=== PATIENT | female | born 1980 | race Hispanic/Latino ===

== ENCOUNTER 2016-08-05 16:18 | Emergency (ER) | payer OTHER ==
[~2016-08-05] VITALS: Ht 154.9 cm; Wt 102.3 kg
[~2016-08-05 16:18] MED LIST: IBUP800T28 PO; LEVO500T16 PO; LEVO750T39 PO; NOMED; ONDA4TAB6 PO; ONDA8TAB7 PO
[2016-08-05 16:39] VITALS: BP 116/72; PULSE 74; RESP 12; O2SAT 100
--- NOTE | 2016-08-05 17:10 | ED.REPORT ---
HPI-Chest Pain Under 40 Date of Service Aug 05, 2016 ED Provider: Benitez Diaz MD Pt is a 36 year old female with a hx of scoliosis and chronic back pain presenting to the ED complaining of middle chest pain and tightness onset at 1000 today while cleaning, lasting for an hour. Associated symptoms include dizziness, SOB, weakness, diaphoresis, constipation, pelvic pressure with urination, abdominal pain, nausea and vomiting. Denies diarrhea. She denies previous similar symptoms or family history of heart disease. She had a normal EKG in today showing sinus rhythm with a rate of 80. Nursing Notes Stated Complaint: CHEST PAIN,BACK PAIN Chief Complaint: Chest Pain Nursing Notes Reviewed: Yes Allergies: Coded Allergies: No Known Allergies (Verified , 07/07/06) Scheduled Famotidine (Pepcid) 40 Mg Tablet 40 MG PO BID Levofloxacin (Levofloxacin) 750 Mg Tablet 750 MG PO DAILY Levofloxacin (Levaquin) 500 Mg Tablet 500 MG PO DAILY Scheduled PRN Ibuprofen (Ibuprofen) 800 Mg Tablet 800 MG PO TID PRN PRN For Pain Ondansetron (Zofran) 4 Mg Tablet 4 MG PO Q4H PRN PRN For Nausea Ondansetron ODT (Zofran ODT) 8 Mg Tablet 8 MG PO Q4H PRN PRN For Nausea Miscellaneous Medications No Historical Medication (No Historical Medication) Ea General Time Seen by MD: 17:09 Chief Complaint Chest pain Hx Obtained From: Patient Arrived By: Walk-in Sudden in Onset?: Yes Onset Occurred: 5 - 8 hours ago Context of Onset: Light exertion Symptom Duration: Since onset Quality: Painful Radiation: : Abdomen: Back Severity: Current: No pain currently Severity: Maximum: Moderate Recent Healthcare: No recent hospitalization, Recent doctor visit Similar Sx Previous: No Past Medical History Past Medical History anemia hx kidney infection Chronic back pain scoliosis Family History Denies family hx of heart disease Smoking History Former Smoker Social History Drug Use: Denies drug use Other Social History: Occupation Works at the [employer] in [facility] Ambulatory Status Independent Review of Systems Respiratory: Reports: Shortness of breath Cardiovascular: Reports: Chest pain GI: Reports: Abdominal pain, Constipation, Nausea, Vomiting, Denies: Diarrhea Skin: Reports Diaphoresis Neurologic: Reports: Dizziness, Weakness Complete sys rev & neg: except as marked. Female: Reports: Pelvic pain Physical Exam Initial Vital Signs Vital Signs (First) Date Time Temp Pulse Resp B/P Pulse Ox O2 Delivery O2 Flow Rate FiO2 08/05/16 16:39 36.4 74 12 116/72 100 Room Air Initial VS: Reviewed Head / Eyes: Atraumatic, Normocephalic, PERRL ENT: Mucous membranes moist, Conjunctiva normal, No scleral icterus Neck: Supple, Non-tender, Full range of motion Skin: Warm, Dry, No cyanosis Neurologic: Alert, Oriented, Nonfocal Psychiatric: Mood/affect normal, Behavior normal, Normal thought content General/Constitutional: Awake, Alert, No acute distress, Well appearing Respiratory / Chest: Breath sounds NL, Breath sounds = bilat, No respiratory distress, No rales, No rhonchi, No wheezing, No chest tenderness Cardiovascular: Heart rate NL, Regular rhythm, Heart sounds NL, No gallop, No murmurs, No rubs, Peripheral circulation NL, Pulses = bilaterally, No gross BP differential Abdomen: BS normoactive Tenderness/Guarding/Rebound: Positive: Tender LLQ... (Mild) Interpretation & Diagnostics Lab Results Interpretation Result Diagram: 08/05/16 1725 08/05/16 1725 Test 08/05/16 17:02 08/05/16 17:25 08/05/16 19:14 08/05/16 19:45 Hold Urine Received (Received) White Blood Count 9.0th/mm3 (3.8-10.1) Red Blood Count 5.02mil/mm3 (3.90-5.20) Hemoglobin 10.8g/dL (12.0-15.6) Hematocrit 35.8% (35.0-46.0) Mean Corpuscular Volume 71.3fL (81-100) Mean Corpuscular Hemoglobin 21.5pg (27.0-35.0) Mean Corpuscular Hemoglobin Concent 30.2% (32.0-37.0) Red Cell Distribution Width 16.3% (12.3-15.4) Platelet Count 337bil/L (150-400) Neutrophils (%) (Auto) 58.5% (40-74) Lymphocytes (%) (Auto) 29.9% (14-46) Monocytes (%) (Auto) 7.1% (4-12) Eosinophils (%) (Auto) 4.0% (0-5) Basophils (%) (Auto) 0.3% (0-3) Sodium Level 138mEq/L (134-144) Potassium Level 3.8mEq/L (3.5-5.2) Chloride Level 101mEq/L (97-108) Carbon Dioxide Level 24mmol/L (18-29) Blood Urea Nitrogen 15mg/dL (6-20) Creatinine 0.59mg/dL (0.57-1.00) Estimat Glomerular Filtration Rate 167mL/min (>59) Glucose Level 98mg/dL (60-99) Calcium Level 9.1mg/dL (8.5-10.1) Magnesium Level 2.0mg/dL (1.6-2.6) Total Bilirubin 0.2mg/dL (0.0-1.2) Aspartate Amino Transf (AST/SGOT) 24U/L (0-50) Alanine Aminotransferase (ALT/SGPT) 18U/L (0-32) Alkaline Phosphatase 68U/L (25-150) Total Protein 7.3g/dL (6.4-8.4) Albumin 4.2g/dL (3.4-5.0) Troponin T < 0.010ug/L (0.0-0.011) Lipase 31U/L (13-60) Lab Results Interpretation: Urine negative ECG Interpretation Time: 18:29 Interpreted by: ED physician Normal ECG Interpretation: Normal rate (64), Normal sinus rhythm X-Ray Chest Interpretation Chest Xray Interpretation: IMPRESSION: No acute cardiopulmonary findings. Dictated by: Patsy Flores M.D. on 08/05/2016 at 18:07 View: Portable, 1 view Interpretation / Wet Read by: Interpret - Radiologist Re-Eval/Medical Decision Re-Evaluation/Progress #1: Time of Eval: 19:25 Patient Status: Condition improved Re-Evaluation/Progress Note: Discussed radiology results and performed physical exam. Re-Evaluation/Progress #2: Time of Eval: 21:25 Patient Status: Condition improved Re-Evaluation/Progress Note: Discussed plan for discharge. Pt understands and agrees. Counseled Regarding: Diagnosis, Lab results, Need for follow-up, When/why to return to ED Discharge & Departure Primary Impression: Chest pain Chest pain type: precordial chest pain Qualified Code: R07.2 - Precordial pain Disposition: Home Discharge Condition All VS Reviewed: Yes Condition: Improved Patient Instructions: Esophageal Spasm (ED) Additional Instructions: Emergency department evaluation today included Examination, Labs, EGD and Chest X-Ray. No Serious Cause for Chest Pain Is Identified. We considered heart disease, and pneumonia among other causes and near these are found to be present. Given the recent history of heartburn, we suggest Pepcid twice daily. Follow up with primary care soon. If having increasing chest pain or shortness of breath return to emergency department. Referrals: Amina Phillips MD (PCP) Scribe Attestation Portions of this note were transcribed by Anjali Montez. I, Dr. Diaz personally performed the history, physical exam and medical decision-making; I reviewed and confirmed the accuracy of the information in the transcribed note. Signed by : Tameka Nesbitt, 08/05/2016 and 2224. copies to: Amina Phillips MD, Donald L MD Aug 05, 2016 17:10 ANJALI MONTEZ Aug 05, 2016 18:06
[2016-08-05 17:43] LABS: BASOPHILS % (AUTO) 0.3 % (0-3); MONOCYTES % (AUTO) 7.1 % (4-12); Mean Corpuscular Hemoglobin 21.5 pg (27.0-35.0); Mean Corpuscular Volume 71.3 fL (81-100); NEUTROPHILS % (AUTO) 58.5 % (40-74); Platelet Count 337 bil/L (150-400)
[2016-08-05] MEDS ORDERED: Ondansetron 2 mg/mL 2 mL Inj ONE (17:54)
--- NOTE | 2016-08-05 18:11 | DRSVH ---
PROCEDURE: X-RAY CHEST ONE VIEW, PORTABLE ([id number]) INDICATIONS: chest pain TECHNIQUE: One view of the chest was acquired. COMPARISON: None. FINDINGS: Surgical changes and devices: None. Lungs and pleura: No pleural effusions or pneumothorax. Lungs are clear. Mediastinum: Mediastinal contours appear normal. Heart size is normal. Bones and chest wall: No suspicious bony lesions. Overlying soft tissues appear unremarkable. IMPRESSION: No acute cardiopulmonary findings. Dictated by: Patsy Flores M.D. on 08/05/2016 at 18:07 Approved by: Patsy Flores M.D. on 08/05/2016 at 18:09
[2016-08-05 18:16] LABS: TROPONIN T < 0.010 ug/L (0.0-0.011)
[2016-08-05] MEDS ORDERED: FAMO40TA72 PO (21:28)
[2016-08-05 21:36] VITALS: BP 118/68; PULSE 82; RESP 12; O2SAT 99
== END 2016-08-05 21:37 | disposition home or self-care (01) ==
LOC: SED 16:18
DX: R07.2 Precordial pain (principal); Z87.891 Personal history of nicotine dependence
CPT/HCPCS: 36415; 71010; 80053; 81025; 83690; 83735; 84484; 85025; 93005; 96374; 99285; J2405

== ENCOUNTER 2016-09-13 19:28 | Emergency (ER) | payer OTHER ==
[~2016-09-13 19:28] MED LIST changes: +FAMO40TA72 PO
[2016-09-13 19:43] VITALS: BP 130/92; PULSE 73; RESP 16; O2SAT 98
--- NOTE | 2016-09-13 19:49 | ED.REPORT ---
HPI-Dental/Mouth Prob Date of Service Sep 13, 2016 ED Provider: Sally Rubalcava History of Present Illness: left lower tooth cracked just prior to arrival while eating popcorn. sees a dentist in [facility]. 01/29 pain. primary care is in [facility]. [facility] Nursing Notes Stated Complaint: DENTAL PAIN Chief Complaint: General Complaint Allergies: Coded Allergies: No Known Allergies (Verified , 07/07/06) Scheduled Famotidine (Pepcid) 40 Mg Tablet 40 MG PO BID Levofloxacin (Levofloxacin) 750 Mg Tablet 750 MG PO DAILY Levofloxacin (Levaquin) 500 Mg Tablet 500 MG PO DAILY Scheduled PRN Ibuprofen (Ibuprofen) 800 Mg Tablet 800 MG PO TID PRN PRN For Pain Ondansetron (Zofran) 4 Mg Tablet 4 MG PO Q4H PRN PRN For Nausea Ondansetron ODT (Zofran ODT) 8 Mg Tablet 8 MG PO Q4H PRN PRN For Nausea Miscellaneous Medications No Historical Medication (No Historical Medication) Ea General Time Seen by MD: 19:48 Chief Complaint Tooth pain Hx Obtained From: Patient Onset Occurred: 1 - 4 hours ago Past Medical History Past Medical History anemia hx kidney infection Chronic back pain scoliosis Denies: Asthma, Diabetes mellitus Past Surgical History Reports: Tonsillectomy Reports: Tubal ligation Family History Denies family hx of heart disease Smoking History Former Smoker (stopped 4 months ago 09/13/2016) Social History Alcohol Use: "Social" Drug Use: Denies drug use Other Social History: Occupation Works at the [employer] in [facility] 09/13/2016 Ambulatory Status Independent Review of Systems Basic Review of Systems Eyes: Vision NL, No discharge Skin: No bruising, No rash, No itch Psychiatric: Normal thought content Physical Exam Initial Vital Signs Vital Signs (First) Date Time Temp Pulse Resp B/P Pulse Ox O2 Delivery O2 Flow Rate FiO2 09/13/16 19:43 36.4 73 16 130/92 98 Room Air Initial VS: Reviewed, Vital signs normal General/Constitutional: Well-developed, Well-nourished Head / Eyes: Atraumatic, Normocephalic, PERRL Respiratory: Breath sounds normal, Clear to auscultation, No respiratory distress Cardiovascular: Regular rate & rhythm, Heart sounds normal, Intact distal pulses Abdomen / GI: Soft, Non-tender, No guarding, No rebound, No distention Back: No CVA tenderness Lymphatic: No lymphadenopathy Extremities: Vascular intact, Neuro intact, No swelling, No tenderness Skin: Warm, Dry, No cyanosis Neurologic: Alert, Oriented, Nonfocal Psychiatric: Mood/affect normal, Behavior normal, Normal thought content ENT: Atraumatic, Airway patent, Mucous membranes moist, Pharynx NL, No peritonsillar abscess lwft lower tooth shows recent fracture with clear signs of decay on remaining tooth. No gum swelling Neck: Atraumatic, Supple, No meningismus, Full range of motion General/Constitutional: Awake, Alert, No acute distress Respiratory / Chest: Atraumatic, Breath sounds NL, Breath sounds = bilat Cardiovascular: Heart rate NL, Regular rhythm, Heart sounds NL Re-Eval/Medical Decision Med Decision/Clinical Course 36 year old female with recent tooth fracture related to decay. Patient has dental care and will be seen Thursday. No sign of abscess, thrush or cellulitis. Discharge & Departure Primary Impression: Broken tooth-uncomplic Disposition: Home Patient Instructions: Dental Caries (ED) Additional Instructions: The exam indicates most of the top portion of the tooth has recently broken. It is showing clear signs of decay in what remains of the tooth. Dental wax would be very helpful to help protect what remains of the tooth. If dental wax is not available at a pharmacy, chap stick will work also. You received a toradol injection in the ER. You are being provided ketorolac 10 mg up to 4 times a day as needed for discomfort. Can use hydrocodone 1 at night for severe unrelenting pain. Amoxicillin 500 mg 3 times a day for 10 days. Please make sure you get to the dentist on Thursday. I am sorry this happened. Referrals: [facility] EDSupervising Provider for APC: Marv Mason MD copies to: [facility] Sally Rubalcava Sep 13, 2016 19:49
[2016-09-13] MEDS ORDERED: Ketorolac 30 mg/mL 2 mL Inj IM ONE (20:00)
[2016-09-13 20:35] VITALS: BP 130/92; PULSE 73; RESP 16; O2SAT 98
== END 2016-09-13 20:36 | disposition home or self-care (01) ==
LOC: SED 19:28
DX: S02.5XXA Fracture of tooth (traumatic), initial encounter for closed fracture (principal); X58.XXXA Exposure to other specified factors, initial encounter; Y93.89 Activity, other specified; Y92.9 Unspecified place or not applicable; Y99.8 Other external cause status; K02.9 Dental caries, unspecified; Z87.891 Personal history of nicotine dependence
CPT/HCPCS: 96374; 99284; J1885

== ENCOUNTER 2016-09-29 01:14 | Emergency (ER) | payer OTHER ==
[~2016-09-29] VITALS: Ht 154.9 cm; Wt 102.3 kg
[2016-09-29 01:25] VITALS: BP 139/96; PULSE 82; RESP 14; O2SAT 97
--- NOTE | 2016-09-29 01:55 | ED.REPORT ---
HPI-Abd Pain F Under 40 Date of Service Sep 29, 2016 ED Provider: Francois Sharif MD Patient is a 36 year old female who presents to the ED complaining of abdominal pain onset three weeks ago. Patient describes the pain as sharp and that her stomach is constantly making a "gurgling" noise. She reports that she's been vomiting since yesterday and is unable to eat without vomiting. Patient reports that she has an upcoming appointment with her PCP, but was unable to wait for this appointment due to the severity of her complaints. The patient also complains of lower back pain. She denies dysuria or flank pain. Patient has previously had a tubal ligation but denies all other abdominal surgeries. Nursing Notes Stated Complaint: VOMITING, ABDOMINAL PAIN Chief Complaint: Female Abdominal Pain Nursing Notes Reviewed: Yes Allergies: Coded Allergies: No Known Allergies (Verified , 07/07/06) Scheduled Famotidine (Pepcid) 40 Mg Tablet 40 MG PO BID Levofloxacin (Levofloxacin) 750 Mg Tablet 750 MG PO DAILY Levofloxacin (Levaquin) 500 Mg Tablet 500 MG PO DAILY Scheduled PRN Ibuprofen (Ibuprofen) 800 Mg Tablet 800 MG PO TID PRN PRN For Pain Ondansetron (Zofran) 4 Mg Tablet 4 MG PO Q4H PRN PRN For Nausea Ondansetron ODT (Zofran ODT) 8 Mg Tablet 8 MG PO Q4H PRN PRN For Nausea Miscellaneous Medications No Historical Medication (No Historical Medication) Ea General Time Seen by MD: 01:55 Chief Complaint Abdominal pain Hx Obtained From: Patient Arrived By: Walk-in Sudden in Onset?: No Onset Occurred: More than a week ago... (3 weeks) Symptom Duration: Since onset Location: : Diffuse Quality: Sharp Severity: Current: Moderate Severity: Maximum: Moderate Recent Healthcare: Recent doctor visit Similar Sx Previous: No Past Medical History Past Medical History anemia hx kidney infection Chronic back pain scoliosis Past Surgical History Reports: Tonsillectomy Reports: Tubal ligation Family History Denies family hx of heart disease Smoking History Former Smoker Social History Alcohol Use: "Social" Drug Use: Denies drug use Other Social History: Good social support, , Local resident Occupation Works at the [employer] in [facility] 09/13/2016 Ambulatory Status Independent Review of Systems Respiratory: Denies: Non-productive cough, Shortness of breath GI: Reports: Abdominal pain, Vomiting Female: Denies: Dysuria, Flank pain Musculoskeletal: Reports: Back pain Complete sys rev & neg: except as marked. Physical Exam Initial Vital Signs Vital Signs (First) Date Time Temp Pulse Resp B/P Pulse Ox O2 Delivery O2 Flow Rate FiO2 09/29/16 01:25 36.8 82 14 139/96 97 Room Air Initial VS: Reviewed, Vital signs abnormal General/Constitutional: Awake, Alert, No acute distress, Well hydrated overweight Respiratory / Chest: Breath sounds NL, Breath sounds = bilat, No respiratory distress, No rales, No rhonchi, No wheezing Cardiovascular: Heart rate NL, Regular rhythm, Heart sounds NL, No murmurs Abdomen: Soft Diffuse tenderness more on LUQ and RLQ Back: Non-tender, No CVA tenderness Head / Eyes: Normocephalic, PERRL, EOMI ENT: Atraumatic, Airway patent, Mucous membranes moist Skin: Color NL, Warm, Dry Neurologic: Oriented X3, Speech NL, No motor deficits, No sensory deficits Neck: Supple, Full range of motion Psychiatric: Affect NL, Mood NL Interpretation & Diagnostics Interpretation & Diagnostics: Urine Dip: ~50 tereso/ml blood. All else normal. Lab Results Interpretation Result Diagram: 09/29/16 0200 09/29/16 0200 Test 09/29/16 02:00 09/29/16 02:45 White Blood Count 8.4th/mm3 (3.8-10.1) Red Blood Count 4.81mil/mm3 (3.90-5.20) Hemoglobin 10.3g/dL (12.0-15.6) Hematocrit 33.6% (35.0-46.0) Mean Corpuscular Volume 69.9fL (81-100) Mean Corpuscular Hemoglobin 21.4pg (27.0-35.0) Mean Corpuscular Hemoglobin Concent 30.7% (32.0-37.0) Red Cell Distribution Width 17.5% (12.3-15.4) Platelet Count 287bil/L (150-400) Neutrophils (%) (Auto) 67.4% (40-74) Lymphocytes (%) (Auto) 21.5% (14-46) Monocytes (%) (Auto) 8.5% (4-12) Eosinophils (%) (Auto) 2.0% (0-5) Basophils (%) (Auto) 0.4% (0-3) Sodium Level 139mEq/L (134-144) Potassium Level 3.4mEq/L (3.5-5.2) Chloride Level 103mEq/L (97-108) Carbon Dioxide Level 21mmol/L (18-29) Blood Urea Nitrogen 8mg/dL (6-20) Creatinine 0.58mg/dL (0.57-1.00) Estimat Glomerular Filtration Rate 170mL/min (>59) Glucose Level 104mg/dL (60-99) Calcium Level 8.8mg/dL (8.5-10.1) Magnesium Level 1.9mg/dL (1.6-2.6) Total Bilirubin 0.4mg/dL (0.0-1.2) Aspartate Amino Transf (AST/SGOT) 19U/L (0-50) Alanine Aminotransferase (ALT/SGPT) 16U/L (0-32) Alkaline Phosphatase 62U/L (25-150) Total Protein 6.9g/dL (6.4-8.4) Albumin 4.0g/dL (3.4-5.0) Lipase 18U/L (13-60) Hold Urine Received (Received) Lab values outside NL range: no clinical significance. Re-Eval/Medical Decision Med Decision/Clinical Course 36-year-old female with nausea vomiting and crampy abdominal pain. She was given saline and Zofran here with good relief of her symptoms. Labs were all normal. Abdominal exam is nonsurgical. Source of Hx: Old records Re-Evaluation/Progress #1: Time of Eval: 05:05 Re-Evaluation/Progress Note: Rechecked patient who has marginally improved. Patient still feels dehyrdated and can't urinate. Re-Evaluation/Progress #2: Time of Eval: 06:31 Patient Status: Condition improved Re-Evaluation/Progress Note: Patient was able to urinate. No acute process found on labs. Patient understands and agrees with the plan to be discharged home. Discharge instructions and follow-up discussed. All questions were addressed. Return to the ED warnings given. Counseled Regarding: Diagnosis, Lab results, Need for follow-up, When/why to return to ED Discharge & Departure Primary Impression: Nausea & vomiting Vomiting type: unspecified Vomiting Intractability: non-intractable Qualified Code: R11.2 - Nausea with vomiting, unspecified Additional Impression: Abdominal pain Abdominal location: generalized Qualified Code: R10.84 - Generalized abdominal pain Disposition: Home Discharge Condition All VS Reviewed: Yes Condition: Stable Patient Instructions: Acute Abdominal Pain (ED), Acute Nausea and Vomiting (ED) Additional Instructions: No serious cause is found for your symptoms. I suspect that this is a viral gastroenteritis. Ondansetron 4-8 mg 3-4 times daily. Return as needed if you get more pain. Referrals: CARISSA STANLEY (PCP) Tameka Attestation Portions of this note were transcribed by Day Gibson and Sherin Goodson. I, Dr. Sharif personally performed the history, physical exam and medical decision-making; I reviewed and confirmed the accuracy of the information in the transcribed note. Signed by: Day Gibson and Tameka Brown, and [id number]. copies to: [facility]ANCH[facility]ISSA Howard L MD Sep 29, 2016 01:55 Luna Gibson Sep 29, 2016 02:15 Sherin Goodson Sep 29, 2016 03:53
[2016-09-29] MEDS ORDERED: 0.9% Sodium Chloride 1,000 ML IV ONE ×2 (02:07→05:20)
[2016-09-29] MEDS ORDERED: Pantoprazole 4 mg/mL 10 mL Inj IVPUSH ONE (02:10)
[2016-09-29 02:14] LABS: BASOPHILS % (AUTO) 0.4 % (0-3); MONOCYTES % (AUTO) 8.5 % (4-12); Mean Corpuscular Hemoglobin 21.4 pg (27.0-35.0); Mean Corpuscular Volume 69.9 fL (81-100); NEUTROPHILS % (AUTO) 67.4 % (40-74); Platelet Count 287 bil/L (150-400)
[2016-09-29] MEDS: Ondansetron 2 mg/mL 2 mL Inj IVPUSH PRN ×3 (02:45→04:17)
[2016-09-29 02:56] LABS: Magnesium 1.9 mg/dL (1.6-2.6)
[2016-09-29] MEDS: HYDROmorphone 0.5 mg/0.5 mL iSecure Syringe IVPUSH PRN ×2 (03:04→04:17)
[2016-09-29 04:11] VITALS: BP 117/71; PULSE 55
[2016-09-29] MEDS ORDERED: Alum-Mag Hydrox-Simeth 30 mL Suspension PO ONE (04:45)
[2016-09-29] MEDS ORDERED: ALPRAZolam 0.5 mg Tablet PO ONE (06:15)
[2016-09-29] MEDS ORDERED: _Ondansetron ODT 4 mg Tablet PO PRN (06:40)
[2016-09-29] MEDS ORDERED: ONDA8TAB10 PO (06:50)
[2016-09-29] MEDS ORDERED: OMEP20CA11 PO (06:50)
[2016-09-29 07:02] VITALS: BP 109/68; PULSE 56; RESP 20; O2SAT 98
== END 2016-09-29 07:05 | disposition home or self-care (01) ==
LOC: SED 01:14
DX: R11.2 Nausea with vomiting, unspecified (principal); R10.84 Generalized abdominal pain; Z87.891 Personal history of nicotine dependence
CPT/HCPCS: 80053; 81025; 83690; 83735; 85025; 96361; 96374; 96375; 96376; 99285; J1170; J1885; J2405; J7030